=== PATIENT | female | born 1935 | race African-American/Black ===

== ENCOUNTER 2023-10-11 06:23 | Emergency (ER) | payer OTHER ==
[~2023-10-11] VITALS: Ht 167.6 cm; Wt 59.0 kg
[2023-10-11 06:29] VITALS: O2SAT 97
[2023-10-11 07:26] VITALS: TEMP 98.6
[2023-10-11] MEDS: ACETAMINOPHEN 325MG TABLET PO ONE (07:26)
[2023-10-11 10:38] VITALS: BP 166/82; PULSE 72; RESP 12
== END 2023-10-11 10:39 | disposition home or self-care (01) ==
LOC: ER 06:23
DX: S09.90XA Unspecified injury of head, initial encounter (principal); I10 Essential (primary) hypertension; W06.XXXA Fall from bed, initial encounter; Y93.89 Activity, other specified; Y92.89 Other specified places as the place of occurrence of the external cause; Y99.8 Other external cause status
CPT/HCPCS: 71045; 73030; 73130; 99284